=== PATIENT | female | born 1990 | race Caucasian/White ===

== ENCOUNTER 2019-12-22 14:31 | Emergency (ER) | payer OTHER, SELFPAY ==
--- NOTE | 2019-12-22 14:33 | ED.SKABFB ---
HPI - Skin/Abscess/Foreign Bdy General Chief complaint: Skin/Abscess/Foreign Body Stated complaint: rash on arms and legs Time Seen by Provider: 12/22/19 14:50 Source: patient and RN notes reviewed Mode of arrival: ambulatory Limitations: no limitations History of Present Illness HPI narrative: 29-year-old female presents with concern for previous rash. Reports the rash has improved, gone away. However, she missed work and is not able to return to work until she has a doctor's note. She denies any current itchy areas, rash, swollen lips, swollen tongue, difficulty breathing. Reports few scabbed areas from scratching. MD complaint: rash Related Data Home Medications Medication Instructions Recorded Confirmed No Home Medications 12/22/19 12/22/19 Allergies Allergy/AdvReac Type Severity Reaction Status Date / Time shellfish derived Allergy Swelling Verified 12/22/19 14:53 Review of Systems Review of Systems: Narrative: CONSTITUTIONAL: Denies malaise, chills, sweats, or fever. ENT: Denies swollen lips, swollen tongue CARDIOVASCULAR: Denies chest pain, palpitations, or edema. RESPIRATORY: Denies cough or dyspnea. GASTROINTESTINAL: Denies abdominal pain, nausea, vomiting, diarrhea SKIN: Denies current rash. Reports several scabbed areas All systems reviewed & are unremarkable except as noted in HPI and below PMFSH Comments At time of signature, agree with nursing past medical, surgical, social and family history. There is no relevant family history pertinent to the presenting complaint Exam Narrative: Exam Narrative: GENERAL: Well-appearing, well-nourished, and in no acute distress. HEAD: Normocephalic EYES: PERRLA, conjunctivae clear ENT: Nares clear. Mucous membranes moist. Oropharynx without edema, erythema or lesions. Tonsils not enlarged and without exudate. NECK: Supple. CHEST: No respiratory distress. Clear to auscultation. No bony deformities, no asymmetry. Speaks in full sentences. HEART: Regular rate and rhythm. No murmur heard. SKIN: Warm, dry, no rash. Few scattered scabs noted NEURO: Alert and oriented x3. PSYCH: Normal mood and affect Course Course Emergency Course: Patient is aware of diagnosis, understands and agrees to treatment plan. Anticipatory guidance given. Patient agrees to follow-up as directed and is aware of reasons to seek care at the emergency department. Portions of this record may have been created with voice recognition software Vital Signs Vital signs: Vital Signs Temperature 97.8 F 12/22/19 14:40 Pulse Rate 104 H 12/22/19 14:40 Respiratory Rate 18 12/22/19 14:40 Blood Pressure 137/85 12/22/19 14:40 Pulse Oximetry 99 12/22/19 14:40 Temperature 97.8 F 12/22/19 14:40 Pulse Rate 104 H 12/22/19 14:40 Respiratory Rate 18 12/22/19 14:40 Blood Pressure 137/85 12/22/19 14:40 Pulse Oximetry 99 12/22/19 14:40 Reviewed. Patient has been instructed to follow up with her primary care provider within the next week regarding her elevated blood pressure today. MDM - Skin/Abscess/Foreign Bdy MDM Narrative Medical decision making narrative: Does not appear at this time to be erythema multiforme, bullous, SJS, TEN; no evidence at this time to suggest RMSF, endocarditis or Lyme disease; patient looks well, nontoxic and is tolerating oral intake; no neurologic signs or symptoms; no headache, photophobia or neck pain; afebrile; appropriate for initial outpatient treatment; discussed the importance of follow-up, patient agrees; question, viral exanthema, contact dermatitis, allergic dermatitis, eczema, urticaria. No soft palate or uvula edema, no tongue, lip edema or other mucosal involvement, no respiratory compromise, no stridor, no wheezing, no wheezing, no history of syncope, no hypotension, no nausea, vomiting, or diarrhea. Instructed patient to go to nearest ER immediately for any worsening symptoms including but not limited to: fever, spreading rash, pain, s
[2019-12-22 14:40] VITALS: BP 137/85; PULSE 104; RESP 18; TEMP 36.6; O2SAT 99
== END 2019-12-22 15:05 | disposition home or self-care (01) ==
PROVIDERS: Emergency Provider Nurse Practitioner
DX: R21 Rash and other nonspecific skin eruption (principal); M41.9 Scoliosis, unspecified
CPT/HCPCS: 99212; G0463